=== PATIENT | male | born 1940 ===

== ENCOUNTER 2017-11-13 17:52 | Inpatient (IN) | payer MEDICARE, OTHER ==
[~2017-11-13] VITALS: Ht 180.3 cm; Wt 54.5 kg
[2017-11-13 19:03] LABS: BASOPHILS % (AUTO) 0 % (0-1); EOSINOPHILS % (AUTO) 0 % (0-6); HEMATOCRIT 34.3 % (42.0-52.0); HEMOGLOBIN 11.9 g/dl (14.0-17.9); LYMPHOCYTES # (AUTO) 0.6 X10'3 (1.1-4.8); LYMPHOCYTES % (AUTO) 1.6 % (21-51); MEAN CORPUSCULAR HEMOGLOBIN 31.7 PG (27.0-31.0); MEAN CORPUSCULAR HGB CONC 34.6 % (33.0-36.5); MEAN CORPUSCULAR VOLUME 91.6 FL (78-98); MEAN PLATELET VOLUME 9.8 FL (7.4-10.4); MONOCYTES # (AUTO) 0.6 X10'3 (0-0.9); MONOCYTES % (AUTO) 1.6 % (2-12); NEUTROPHILS # (AUTO) 36.5 X10'3 (1.8-7.7); NEUTROPHILS % (AUTO) 96.8 % (42-75); PLATELET COUNT 114 X10'3 (140-440); RED BLOOD COUNT 3.75 X10'6 (4.70-6.10); RED CELL DISTRIBUTION WIDTH 14.7 % (11.5-14.5)
[2017-11-13] MEDS ORDERED: normal saline 1000ml 1,000 ML IV ONE ×2 (19:10)
[2017-11-13 19:11] LABS: WHITE BLOOD COUNT 37.7 X10'3 (4.5-11.0)
[2017-11-13 19:15] LABS: INR 1.6 INR; PARTIAL THROMBOPLASTIN TIME 33 SECONDS (22-32); PROTHROMBIN TIME 16.1 SECONDS (9.0-12.0)
[2017-11-13] MEDS ORDERED: normal saline 1000ML IV soln IVB ONE (19:35)
[2017-11-13] MEDS ORDERED: CefTRIAXone 2gm/D5W 50ml 50 ML IV ONE (19:35)
[2017-11-13] MEDS ORDERED: vancomycin/NS 1 GM ADD-VANTAGE 250 ML IV ONE (19:35)
[2017-11-13 19:37] LABS: ALANINE AMINOTRANSFERASE 26 U/L (12-78); ALBUMIN 1.7 G/DL (3.4-5.0); ALBUMIN/GLOBULIN RATIO 0.4 (1.1-1.5); ALKALINE PHOSPHATASE 366 IU/L (46-116); ANION GAP 19 (8-16); ASPARTATE AMINO TRANSFERASE 48 U/L (10-37); BILIRUBIN,TOTAL 1.5 MG/DL (0.1-1.0); BLOOD UREA NITROGEN 113 MG/DL (7-18); BUN/CREATININE RATIO 21.2 (5.4-32.0); CALCIUM 8.3 MG/DL (8.5-10.1); CHLORIDE 109 MMOL/L (99-107); CREATININE 5.33 MG/DL (0.60-1.10); GLUCOSE 78 MG/DL (70-104); POTASSIUM 4.5 MMOL/L (3.5-5.1); SODIUM 148 MMOL/L (135-145); TOTAL CARBON DIOXIDE 19.8 MMOL/L (24-32); TOTAL PROTEIN 5.5 G/DL (6.4-8.2); eGFR 10 ML/MIN
[2017-11-13 20:19] LABS: BURR CELLS 1+; TOTAL CELLS COUNTED 100
[2017-11-13 20:20] LABS: ANISOCYTOSIS FEW; PLATELET ESTIMATE DECREASED; TOXIC GRANULATION 1+; TOXIC VACUOLATION FEW
[2017-11-13 21:02] LABS: CLARITY,URINE CLOUDY (Clear); COLOR,URINE YELLOW (Yellow); GLUCOSE, URINE NEGATIVE (Neg); KETONES,URINE NEGATIVE (Neg); LEUKOCYTE ESTERASE ,URINE LARGE (Neg); NITRITES, URINE NEGATIVE (Neg); OCCULT BLOOD,URINE MODERATE (Neg); PROTEIN,URINE 30 mg/dl (Neg); UROBILINOGEN,URINE 0.2 E.U/dL (0.2-1.0)
[2017-11-13 21:03] LABS: UA COLLECTION TYPE FOLEY CATH
[2017-11-13 21:08] LABS: BACTERIA,URINE 4+ /HPF (Neg); SQUAMOUS EPITHELIAL CELL,UR FEW /LPF (FEW); WBC,URINE TNTC /HPF (0-4)
[2017-11-13] MEDS: K, MAG and/or Phos replacement - Verify level? MC SCH (22:35)
[2017-11-13] MEDS ORDERED: potassium Cl 40MEQ/250ML bag 250 ML IV PRN ×2 (22:35)
[2017-11-13] MEDS ORDERED: albuterol 2.5 MG/3 ML nebule NEB PRN (22:35)
[2017-11-13] MEDS ORDERED: magnesium 2GM in 50ml NS 50 ML IV PRN (22:35)
[2017-11-13] MEDS ORDERED: magnesium 4gm in 100ml NS 100 ML IV PRN (22:35)
[2017-11-13] MEDS ORDERED: potassium Cl 40MEQ/NS 500ml 500 ML IV PRN ×2 (22:35)
[2017-11-13] MEDS ORDERED: levoFLOXACIN-Levaquin 750MG/D5 150 ML IV ONE (23:10)
[2017-11-13 23:26] LABS: ABG BASE EXCESS -8.7 mmol/L (-2.0-3.0); ABG HCO3 15.3 mmol/L (22.0-26.0); ABG OXYGEN SATURATION 86.8 % (95-98); ABG PH (T) 7.368 (7.350-7.450); ABG PO2 (T) 48.3 mmHg (83-108); FCOHb 0.3 % (0.5-1.5); FMetHb 0.2 % (0.3-1.12); FO2Hb 86.4 % (94-100); PATIENT TEMPERATURE 36.3; TOTAL HEMOGLOBIN 12.7 G/dl (14.0-18.0)
[2017-11-13 23:56] LABS: OXYGEN SATURATION (MIXED VEN) 68.1 % (60-80); PO2 MIXED VENOUS (TEMP COR) 33.9 mmHg (35-46)
[2017-11-14] VITALS (19 sets, daily range): BP systolic 83–126; BP diastolic 47–80
[2017-11-14] MEDS: pantoprazole 40 MG vial IV SCH ×2 (00:47→08:02)
[2017-11-14 01:16] LABS: HEMATOCRIT 35.8 % (42.0-52.0); HEMOGLOBIN 11.8 g/dl (14.0-17.9); MEAN CORPUSCULAR HEMOGLOBIN 30.6 PG (27.0-31.0); MEAN CORPUSCULAR VOLUME 92.8 FL (78-98); MEAN PLATELET VOLUME 10.5 FL (7.4-10.4); PLATELET COUNT 112 X10'3 (140-440); RED BLOOD COUNT 3.86 X10'6 (4.70-6.10)
[2017-11-14 01:21] LABS: ABG BASE EXCESS -9.3 mmol/L (-2.0-3.0); ABG HCO3 15.5 mmol/L (22.0-26.0); ABG PCO2 (T) 29.5 mmHg (35.0-48.0); ABG PH (T) 7.333 (7.350-7.450); ABG PO2 (T) 178.6 mmHg (83-108); FCOHb 0.3 % (0.5-1.5); FLOW 10 L/min; FMetHb 0.4 % (0.3-1.12); FO2Hb 98.3 % (94-100); PATIENT TEMPERATURE 36.2; TOTAL HEMOGLOBIN 12.4 G/dl (14.0-18.0)
[2017-11-14 01:27] LABS: INR 1.6 INR; PARTIAL THROMBOPLASTIN TIME 32 SECONDS (22-32); PROTHROMBIN TIME 16.4 SECONDS (9.0-12.0)
[2017-11-14 01:30] LABS: WHITE BLOOD COUNT 53.5 X10'3 (4.5-11.0)
[2017-11-14 01:34] LABS: ALANINE AMINOTRANSFERASE 27 U/L (12-78); ALBUMIN 1.6 G/DL (3.4-5.0); ALBUMIN/GLOBULIN RATIO 0.4 (1.1-1.5); ALKALINE PHOSPHATASE 326 IU/L (46-116); ANION GAP 18 (8-16); ASPARTATE AMINO TRANSFERASE 58 U/L (10-37); BILIRUBIN,TOTAL 1.4 MG/DL (0.1-1.0); BLOOD UREA NITROGEN 103 MG/DL (7-18); BUN/CREATININE RATIO 21.9 (5.4-32.0); CALCIUM 7.7 MG/DL (8.5-10.1); CHLORIDE 111 MMOL/L (99-107); GLUCOSE 83 MG/DL (70-104); MAGNESIUM 2.3 MG/DL (1.5-2.4); POTASSIUM 4.5 MMOL/L (3.5-5.1); SODIUM 147 MMOL/L (135-145); TOTAL CARBON DIOXIDE 18.2 MMOL/L (24-32); TOTAL PROTEIN 5.6 G/DL (6.4-8.2); eGFR 12 ML/MIN
[2017-11-14] MEDS ORDERED: methylPREDNISolone sod succ 125mg/2ml vial IV SCH (02:00)
[2017-11-14 02:04] LABS: PLATELET ESTIMATE DECREASED; TOTAL CELLS COUNTED 100
[2017-11-14 02:05] LABS: BURR CELLS 1+; TOXIC GRANULATION 1+; TOXIC VACUOLATION FEW
[2017-11-14] MEDS ORDERED: normal saline 1000ml 1,000 ML IV SCH (02:19)
[2017-11-14] MEDS ORDERED: normal saline 500ml IV soln 500 ML IV ONE (02:20)
[2017-11-14] MEDS ORDERED: vancomycin/NS 1 GM ADD-VANTAGE 250 ML IV ONE (02:35)
[2017-11-14] MEDS ORDERED: albuterol 2.5 MG/3 ML nebule NEB PRN (02:45)
[2017-11-14] MEDS ORDERED: hydrocortisone sod succ/PF 100mg/2ml inj. IV SCH (08:00)
[2017-11-14] MEDS ORDERED: levoFLOXACIN-Levaquin 750MG/D5 150 ML IV SCH (08:00)
[2017-11-14] MEDS ORDERED: heparin, porcine 5000 units/ml vial SQ SCH (08:00)
[2017-11-14] MEDS ORDERED: CefTRIAXone inj 2,000 MG in dextrose 5%-water 50ml 50 ML IV SCH (08:00)
[2017-11-14] MEDS: K, MAG and/or Phos replacement - Verify level? MC SCH (08:00)
[2017-11-14] MEDS ORDERED: vancomycin/NS 1 GM ADD-VANTAGE 250 ML X 1 DOSE IV PRN (08:00)
[2017-11-14] MEDS: heparin, porcine 5000 units/ml vial SQ SCH ×2 (08:02→21:22)
[2017-11-14] MEDS ORDERED: dextrose 50%-water 50ml dispensing syringe IV ONE (08:15)
[2017-11-14] MEDS ORDERED: dextrose 5%-normal saline 1,000 ML IV SCH (08:15)
[2017-11-14] MEDS ORDERED: NORMAL SALINE IV ONE (08:35)
[2017-11-14] MEDS ORDERED: SINCALIDE IV ONE (08:35)
[2017-11-14] MEDS ORDERED: cefepime 1GM/NS ADD-VANTAGE 100 ML IV SCH (09:05)
[2017-11-14 09:14] LABS: VANCOMYCIN,RANDOM 14.4 UG/ML
[2017-11-14] MEDS: sodium bicarbonate (8.4%) inj. 150 MEQ in dextrose 5%-water 1,000 ML IV SCH ×2 (10:07→18:23)
[2017-11-14] MEDS: metroNIDAZOLE-Flagyl 500mg/NS 100 ML IV SCH ×2 (10:07→21:22)
[2017-11-14] MEDS ORDERED: cefepime inj. 1 GM in dextrose 5%-water 50ml 50 ML IV SCH (11:47)
[2017-11-14] MEDS ORDERED: MIDAZolam 5mg/ml 2ml vial IV ONE (13:00)
[2017-11-14] MEDS: lactobacillus rhamnosus 10,000 MMU CELLS/CAPSULE PO SCH (21:22)
[2017-11-15 03:00] VITALS: BP 127/74
[2017-11-15] MEDS: sodium bicarbonate (8.4%) inj. 150 MEQ in dextrose 5%-water 1,000 ML IV SCH (03:45)
[2017-11-15 06:00] VITALS: BP 134/88
[2017-11-15] MEDS: K, MAG and/or Phos replacement - Verify level? MC SCH (08:00)
[2017-11-15] MEDS ORDERED: levoFLOXACIN-Levaquin 500mg/D5 150 ML IV SCH (08:00)
[2017-11-15] MEDS: pantoprazole 40 MG vial IV SCH (08:16)
[2017-11-15] MEDS: heparin, porcine 5000 units/ml vial SQ SCH ×2 (08:17→19:49)
[2017-11-15] MEDS: lactobacillus rhamnosus 10,000 MMU CELLS/CAPSULE PO SCH ×2 (08:24→19:54)
[2017-11-15] MEDS: metroNIDAZOLE-Flagyl 500mg/NS 100 ML IV SCH ×2 (09:54→19:54)
[2017-11-15 11:00] VITALS: BP 143/79
[2017-11-15] MEDS ORDERED: vancomycin/NS 1 GM ADD-VANTAGE 250 ML X 1 DOSE IV ONE ×2 (11:20→14:10)
[2017-11-15] MEDS: CefTRIAXone 2gm/D5W 50ml 50 ML IV SCH (11:23)
[2017-11-15 12:05] LABS: HEMATOCRIT 35.9 % (42.0-52.0); HEMOGLOBIN 12.4 g/dl (14.0-17.9); MEAN CORPUSCULAR HEMOGLOBIN 31.5 PG (27.0-31.0); MEAN CORPUSCULAR HGB CONC 34.4 % (33.0-36.5); MEAN CORPUSCULAR VOLUME 91.6 FL (78-98); MEAN PLATELET VOLUME 10.4 FL (7.4-10.4); PLATELET COUNT 79 X10'3 (140-440); RED BLOOD COUNT 3.92 X10'6 (4.70-6.10); RED CELL DISTRIBUTION WIDTH 14.7 % (11.5-14.5)
[2017-11-15 12:14] LABS: INR 1.3 INR; PARTIAL THROMBOPLASTIN TIME 35 SECONDS (22-32); PROTHROMBIN TIME 13.8 SECONDS (9.0-12.0)
[2017-11-15 12:20] LABS: ALANINE AMINOTRANSFERASE 27 U/L (12-78); ALBUMIN 1.6 G/DL (3.4-5.0); ALBUMIN/GLOBULIN RATIO 0.4 (1.1-1.5); ALKALINE PHOSPHATASE 269 IU/L (46-116); ANION GAP 11 (8-16); ASPARTATE AMINO TRANSFERASE 29 U/L (10-37); BILIRUBIN,TOTAL 0.6 MG/DL (0.1-1.0); BLOOD UREA NITROGEN 93 MG/DL (7-18); BUN/CREATININE RATIO 24.7 (5.4-32.0); CALCIUM 7.7 MG/DL (8.5-10.1); CHLORIDE 113 MMOL/L (99-107); CREATININE 3.77 MG/DL (0.60-1.10); GLUCOSE 166 MG/DL (70-104); MAGNESIUM 2.2 MG/DL (1.5-2.4); SODIUM 153 MMOL/L (135-145); TOTAL CARBON DIOXIDE 29.4 MMOL/L (24-32); TOTAL PROTEIN 5.4 G/DL (6.4-8.2); VANCOMYCIN,RANDOM 8.8 UG/ML; eGFR 16 ML/MIN
[2017-11-15 12:21] LABS: WHITE BLOOD COUNT 46.1 X10'3 (4.5-11.0)
[2017-11-15 12:27] LABS: TOTAL CELLS COUNTED 100
[2017-11-15 12:28] LABS: BURR CELLS 1+; PLATELET ESTIMATE DECREASED; SMUDGE CELLS 1+; TOXIC GRANULATION 3+; TOXIC VACUOLATION 1+
[2017-11-15] MEDS ORDERED: magnesium 4gm in 100ml NS 100 ML IV PRN (12:35)
[2017-11-15] MEDS ORDERED: magnesium 2GM in 50ml NS 50 ML IV PRN (12:35)
[2017-11-15] MEDS ORDERED: potassium Cl 40MEQ/NS 500ml 500 ML IV PRN (12:35)
[2017-11-15] MEDS: potassium Cl 40MEQ/NS 500ml 500 ML IV PRN (14:20)
[2017-11-15 15:00] VITALS: BP 126/87
[2017-11-15] MEDS ORDERED: docusate sod 250mg capsule PO ONE ×2 (17:05→21:00)
[2017-11-15] MEDS ORDERED: HYDROcodone/acetaminophen 5mg/325mg tablet PO PRN (17:20)
[2017-11-15] MEDS ORDERED: naloxone 0.4 mg/ml inj IV PRN (17:25)
[2017-11-15] MEDS ORDERED: bisacodyl 10mg suppository rectal RC PRN (17:25)
[2017-11-15] MEDS ORDERED: lactulose 20gm/30ml cup PO PRN (17:25)
[2017-11-15] MEDS ORDERED: morphine 4 MG/ML inj SYRINge IM ONE (17:25)
[2017-11-15] MEDS: potassium CL 20mEq in D5-1/2NS 1,000 ML IV SCH (17:44)
[2017-11-15] MEDS: docusate sod 100mg capsule PO SCH (19:50)
[2017-11-15 20:47] LABS: ALANINE AMINOTRANSFERASE 30 U/L (12-78); ALBUMIN 1.6 G/DL (3.4-5.0); ALBUMIN/GLOBULIN RATIO 0.4 (1.1-1.5); ALKALINE PHOSPHATASE 280 IU/L (46-116); ANION GAP 9 (8-16); ASPARTATE AMINO TRANSFERASE 30 U/L (10-37); BILIRUBIN,TOTAL 0.6 MG/DL (0.1-1.0); BLOOD UREA NITROGEN 88 MG/DL (7-18); BUN/CREATININE RATIO 26.2 (5.4-32.0); CALCIUM 7.6 MG/DL (8.5-10.1); CHLORIDE 115 MMOL/L (99-107); CREATININE 3.36 MG/DL (0.60-1.10); GLUCOSE 163 MG/DL (70-104); POTASSIUM 3.1 MMOL/L (3.5-5.1); SODIUM 154 MMOL/L (135-145); TOTAL PROTEIN 5.5 G/DL (6.4-8.2); eGFR 18 ML/MIN
[2017-11-15 22:00] VITALS: BP 140/85
[2017-11-16 02:30] VITALS: BP 136/88
[2017-11-16] MEDS: VANCOMYCIN LEVEL IV SCH (03:00)
[2017-11-16] MEDS: potassium CL 20mEq in D5-1/2NS 1,000 ML IV SCH (04:19)
[2017-11-16 06:00] VITALS: BP 132/90
[2017-11-16 06:16] LABS: HEMATOCRIT 36.7 % (42.0-52.0); HEMOGLOBIN 12.4 g/dl (14.0-17.9); MEAN CORPUSCULAR HEMOGLOBIN 31.3 PG (27.0-31.0); MEAN CORPUSCULAR HGB CONC 33.9 % (33.0-36.5); MEAN CORPUSCULAR VOLUME 92.6 FL (78-98); MEAN PLATELET VOLUME 11.4 FL (7.4-10.4); PLATELET COUNT 60 X10'3 (140-440); RED BLOOD COUNT 3.97 X10'6 (4.70-6.10); RED CELL DISTRIBUTION WIDTH 14.6 % (11.5-14.5)
[2017-11-16 06:21] LABS: WHITE BLOOD COUNT 25.7 X10'3 (4.5-11.0)
[2017-11-16] MEDS: docusate sod 100mg capsule PO SCH ×3 (06:25→19:58)
[2017-11-16] MEDS: heparin, porcine 5000 units/ml vial SQ SCH ×2 (06:26→19:30)
[2017-11-16] MEDS: lactobacillus rhamnosus 10,000 MMU CELLS/CAPSULE PO SCH ×3 (06:26→19:59)
[2017-11-16 06:34] LABS: INR 1.4 INR; PARTIAL THROMBOPLASTIN TIME 33 SECONDS (22-32); PROTHROMBIN TIME 14.5 SECONDS (9.0-12.0)
[2017-11-16 06:40] LABS: ALANINE AMINOTRANSFERASE 24 U/L (12-78); ALBUMIN 1.5 G/DL (3.4-5.0); ALBUMIN/GLOBULIN RATIO 0.4 (1.1-1.5); ALKALINE PHOSPHATASE 243 IU/L (46-116); ANION GAP 10 (8-16); ASPARTATE AMINO TRANSFERASE 24 U/L (10-37); BILIRUBIN,TOTAL 0.5 MG/DL (0.1-1.0); BLOOD UREA NITROGEN 76 MG/DL (7-18); BUN/CREATININE RATIO 26.8 (5.4-32.0); CALCIUM 7.6 MG/DL (8.5-10.1); CHLORIDE 117 MMOL/L (99-107); CREATININE 2.84 MG/DL (0.60-1.10); GLUCOSE 192 MG/DL (70-104); MAGNESIUM 2.1 MG/DL (1.5-2.4); TOTAL CARBON DIOXIDE 28.9 MMOL/L (24-32); VANCOMYCIN,RANDOM 14.1 UG/ML; eGFR 22 ML/MIN
[2017-11-16 06:44] LABS: TOTAL CELLS COUNTED 100
[2017-11-16 06:45] LABS: ANISOCYTOSIS 1+; PLATELET ESTIMATE DECREASED; TOXIC GRANULATION 1+; TOXIC VACUOLATION 1+
[2017-11-16 06:51] LABS: SODIUM 156 MMOL/L (135-145)
[2017-11-16] MEDS ORDERED: dextrose 5%-water 1,000 ML IV SCH (07:05)
[2017-11-16] MEDS: CefTRIAXone 2gm/D5W 50ml 50 ML IV SCH (07:29)
[2017-11-16] MEDS: pantoprazole 40 MG vial IV SCH (07:29)
[2017-11-16] MEDS: K, MAG and/or Phos replacement - Verify level? MC SCH (08:00)
[2017-11-16] MEDS: metroNIDAZOLE-Flagyl 500mg/NS 100 ML IV SCH (09:08)
[2017-11-16] MEDS ORDERED: vancomycin/NS 1 GM ADD-VANTAGE 250 ML X 1 DOSE IV ONE (09:10)
[2017-11-16] MEDS: potassium Cl 40MEQ/NS 500ml 500 ML IV PRN (10:13)
[2017-11-16 11:00] VITALS: BP 139/92
[2017-11-16] MEDS ORDERED: morphine 4 MG/ML inj SYRINge IV PRN (13:50)
[2017-11-16] MEDS: morphine 4 MG/ML inj SYRINge IV PRN (14:06)
[2017-11-16 15:00] VITALS: BP 144/81
[2017-11-16 19:00] VITALS: BP 136/97
[2017-11-16 22:00] VITALS: BP 147/79
[2017-11-17] MEDS: morphine 4 MG/ML inj SYRINge IV PRN ×5 (00:37→20:55)
[2017-11-17 02:00] VITALS: BP 156/84
[2017-11-17] MEDS: VANCOMYCIN LEVEL IV SCH (03:00)
[2017-11-17 05:38] LABS: BASOPHILS % (AUTO) 0 % (0-1); EOSINOPHILS % (AUTO) 0 % (0-6); HEMATOCRIT 41.7 % (42.0-52.0); LYMPHOCYTES # (AUTO) 1.5 X10'3 (1.1-4.8); LYMPHOCYTES % (AUTO) 5.2 % (21-51); MEAN CORPUSCULAR HEMOGLOBIN 31.2 PG (27.0-31.0); MEAN CORPUSCULAR HGB CONC 33.5 % (33.0-36.5); MEAN CORPUSCULAR VOLUME 93.2 FL (78-98); MEAN PLATELET VOLUME 11.6 FL (7.4-10.4); MONOCYTES # (AUTO) 0.2 X10'3 (0-0.9); MONOCYTES % (AUTO) 0.8 % (2-12); NEUTROPHILS # (AUTO) 26.3 X10'3 (1.8-7.7); PLATELET COUNT 70 X10'3 (140-440); RED BLOOD COUNT 4.48 X10'6 (4.70-6.10); RED CELL DISTRIBUTION WIDTH 14.8 % (11.5-14.5)
[2017-11-17 05:49] LABS: INR 1.5 INR; PARTIAL THROMBOPLASTIN TIME 28 SECONDS (22-32); PROTHROMBIN TIME 15.3 SECONDS (9.0-12.0)
[2017-11-17 06:00] VITALS: BP 139/83
[2017-11-17 06:12] LABS: ALANINE AMINOTRANSFERASE 27 U/L (12-78); ALBUMIN 1.7 G/DL (3.4-5.0); ALBUMIN/GLOBULIN RATIO 0.4 (1.1-1.5); ALKALINE PHOSPHATASE 251 IU/L (46-116); ANION GAP 9 (8-16); ASPARTATE AMINO TRANSFERASE 25 U/L (10-37); BILIRUBIN,TOTAL 0.6 MG/DL (0.1-1.0); BLOOD UREA NITROGEN 56 MG/DL (7-18); BUN/CREATININE RATIO 27.3 (5.4-32.0); CHLORIDE 120 MMOL/L (99-107); CREATININE 2.05 MG/DL (0.60-1.10); GLUCOSE 118 MG/DL (70-104); POTASSIUM 3.2 MMOL/L (3.5-5.1); TOTAL CARBON DIOXIDE 31.2 MMOL/L (24-32); TOTAL PROTEIN 5.5 G/DL (6.4-8.2); VANCOMYCIN,RANDOM 16.7 UG/ML; eGFR 32 ML/MIN
[2017-11-17 06:34] LABS: WHITE BLOOD COUNT 27.9 X10'3 (4.5-11.0)
[2017-11-17 06:50] LABS: SODIUM 160 MMOL/L (135-145)
[2017-11-17 07:45] LABS: LYMPHOCYTES % (MANUAL) 2 % (21-51); MONOCYTES % (MANUAL) 2 % (2-12); NEUTROPHILS % (MANUAL) 96 % (42-75); TOTAL CELLS COUNTED 100
[2017-11-17 07:46] LABS: LARGE PLATELETS FEW; PLATELET ESTIMATE DECREASED
[2017-11-17] MEDS: heparin, porcine 5000 units/ml vial SQ SCH (08:00)
[2017-11-17] MEDS: docusate sod 100mg capsule PO SCH (08:00)
[2017-11-17] MEDS: K, MAG and/or Phos replacement - Verify level? MC SCH (08:00)
[2017-11-17] MEDS: lactobacillus rhamnosus 10,000 MMU CELLS/CAPSULE PO SCH (08:00)
[2017-11-17] MEDS: CefTRIAXone 2gm/D5W 50ml 50 ML IV SCH (08:25)
[2017-11-17] MEDS: pantoprazole 40 MG vial IV SCH (08:26)
[2017-11-17] MEDS ORDERED: dextrose 5%-water 1,000 ML IV SCH (08:30)
[2017-11-17] MEDS ORDERED: desmopressin 4 MCG/1 ML amp SQ STA (08:30)
[2017-11-17] MEDS ORDERED: LIDOcaine 1% 30ml vial 5 ML in potassium Cl 40MEQ/NS 500ml 500 ML IV PRN (09:10)
[2017-11-17] MEDS ORDERED: NO HOME MEDS (10:07)
[2017-11-17 11:41] VITALS: BP 175/101
[2017-11-17 15:00] VITALS: BP 180/109
[2017-11-17] MEDS ORDERED: morphine 10mg/ml inj. IV PRN (15:10)
[2017-11-17 19:00] VITALS: BP 159/85
[2017-11-17] MEDS: LORazepam 2 mg/ml vial IV PRN (23:03)
[2017-11-18] MEDS: morphine 4 MG/ML inj SYRINge IV PRN ×4 (05:59→21:18)
[2017-11-18 06:00] VITALS: BP 110/77
[2017-11-18] MEDS: LORazepam 2 mg/ml vial IV PRN ×2 (07:16→16:34)
[2017-11-19] MEDS: morphine 4 MG/ML inj SYRINge IV PRN ×7 (00:12→19:17)
[2017-11-19 07:07] VITALS: BP 151/76
[2017-11-19] MEDS: LORazepam 2 mg/ml vial IV PRN ×2 (15:00→22:06)
[2017-11-19 18:00] VITALS: BP 123/62
== END 2017-11-19 23:02 | disposition expired | DRG 871 ==
LOC: ER 17:53 → ED HOLD 22:32 → CICU 2S 23:42 → PCU 3S 11-14 21:50 → SUR 3N 11-18 20:39
PROVIDERS: ADMIT Internal Medicine Critical Care Medicine; ATTEND Internal Medicine Critical Care Medicine
PROC: 05HM33Z Insertion of Infusion Device into Right Internal Jugular Vein, Percutaneous Approach (ICD-10-PCS; principal; 2017-11-13)
DX: A41.51 Sepsis due to Escherichia coli [E. coli] (principal); R65.21 Severe sepsis with septic shock; N17.9 Acute kidney failure, unspecified; E87.0 Hyperosmolality and hypernatremia; G71.0 Muscular dystrophy; J18.9 Pneumonia, unspecified organism; N39.0 Urinary tract infection, site not specified; E86.0 Dehydration; K82.8 Other specified diseases of gallbladder; K81.9 Cholecystitis, unspecified; R13.10 Dysphagia, unspecified; Z60.2 Problems related to living alone; Z51.5 Encounter for palliative care; Z66 Do not resuscitate; Z79.899 Other long term (current) drug therapy; Z79.01 Long term (current) use of anticoagulants; Z87.440 Personal history of urinary (tract) infections
CPT/HCPCS: 36415; 36556; 36600; 70450; 71045; 71250; 74176; 76700; 80053; 80202; 81001; 82803; 82810; 82948; 83605; 83735; 84145; 84443; 84484; 85018; 85025; 85610; 85730; 87040; 87070; 87077; 87088; 87186; 92616; 93005; 93306; 94760; 96365; 96375; 97110; 97116; 97162; 97530; 99291; A6212; A6213; A6250; C1751; C1758; C9113; J0692; J0696; J1644; J1720; J1956; J2060; J2270; J2597; J2805; J3370; J3480; J3490; J7030; J7040; J7042; J7060; J7070